=== PATIENT | female | born 1995 | race Caucasian/White ===

== ENCOUNTER 2023-12-13 23:54 | Emergency (ER) | payer BC, OTHER ==
[2023-12-14 00:04] VITALS: BP 132/86; PULSE 87; RESP 18; TEMP 98.5; BMI 34.3
[2023-12-14] MEDS ORDERED: SULFAMETHOXAZOLE/TRIMETHOPRIM 800MG/160MG D.S. TABLET ONE (00:50)
[2023-12-14] MEDS: SULFAMETHOXAZOLE/TRIMETHOPRIM 800MG/160MG D.S. TABLET PO ONE (00:51)
== END 2023-12-14 00:56 | disposition home or self-care (01) ==
LOC: JER 23:54
DX: L02.31 Cutaneous abscess of buttock (principal)
CPT/HCPCS: 99283-25